=== PATIENT | male | born 1950 | race Caucasian/White ===

== ENCOUNTER → 2017-07-12 09:24 | Outpatient (CLI) | payer MEDICARE, OTHER, SELFPAY ==
--- NOTE | 2017-07-12 09:50 | RAD_ITS ---
STUDY: X-RAY - RIGHT KNEE REASON FOR EXAM: Male, 66 years old. Chronic pain. TECHNIQUE: 4 view(s) of the knee, 2 of which are labeled as weightbearing. COMPARISON: None. FINDINGS: There is early periarticular spurring of the medial femoral condyle. Mild periarticular spurring of the medial tibial plateau as well as spurring of the tibial spines. Normal visualized proximal fibula. There is periarticular spurring at the apex and base of the patella. There is no demonstrated destructive osseous lesion or fracture. Normal medial femorotibial compartment. There is moderate degenerative arthrosis of the lateral femorotibial compartment with moderate joint space narrowing. There is borderline degenerative arthrosis of the patellofemoral articulation. Normal proximal tibiofibular articulation. There is no demonstrated joint effusion. Tibioperoneal calcifications incidentally noted in the calf RAD/Knee 4 or More Views IMPRESSION: Degenerative changes of the knee, as described, is prominent in the medial femorotibial compartment. Electronically Signed: Rei Campos MD at 17:10 EST , Service support ,
== END ==
PROVIDERS: Family Provider Internal Medicine; PCP Internal Medicine; Visit Provider Internal Medicine
DX: M17.11 Unilateral primary osteoarthritis, right knee (principal)
CPT/HCPCS: 73564

== ENCOUNTER → 2018-07-10 15:14 | Outpatient (CLI) | payer MEDICARE, OTHER, SELFPAY ==
--- NOTE | 2018-07-10 15:28 | MRI_ITS ---
STUDY: MRA OF THE HEAD WITHOUT CONTRAST REASON FOR EXAM: Male, 67 years old. Possible stroke TECHNIQUE: 3-D [id number]-[id number] (TOF) imaging was performed with MIPs. The study was performed unenhanced. COMPARISON: None. FINDINGS: Normal bilateral petrous carotid arteries. Normal right cavernous carotid artery with a normal supraclinoid bifurcation. Normal left cavernous carotid artery with a normal supraclinoid bifurcation. Normal right A1 segments of the anterior cerebral artery. Normal left A1 segments of the anterior cerebral artery. Normal intact anterior communicating artery (ACOM). Normal bilateral A2 segments of the anterior cerebral arteries. Normal right M1 and M2 segments of the middle cerebral arteries, with a normal M1 bifurcation. Normal left M1 and M2 segments of the middle cerebral arteries, with a normal M1 bifurcation. Posterior communicating arteries not visualized consistent with normal variant. Right vertebral is dominant and normal caliber. There is hypoplastic left vertebral terminating in PICA which is normal developmental variant... Normal basilar artery with a normal basilar bifurcation. The visualized bilateral superior cerebellar (SCA) arteries are normal. Normal bilateral P1, P2 and visualized P3 segments of the posterior cerebral arteries. There is no demonstrated aneurysm of the [place]. There is no major vessel occlusion or hemodynamically significant stenosis. There is no demonstrated abnormality of the visualized brain. MRI/MRA Head ONLY without Contrast IMPRESSION: Normal MRA of the head Electronically Signed: Jaspal Tidwell MD at 16:39 EST , Service support ,
--- NOTE | 2018-07-10 15:28 | MRI_ITS ---
STUDY: MRI BRAIN WITHOUT CONTRAST REASON FOR EXAM: Male, 67 years old. Diplopia TECHNIQUE: Standardized multiplanar fat and water weighted pulse sequences were obtained. COMPARISON: None. FINDINGS: Mild diffuse cerebral atrophy.. Normal white matter tracts of the supratentorial brain. Normal bilateral basal ganglia. Normal thalami. There is no extra-axial fluid accumulation. Normal flow voids within the major intracranial circulation suggesting patency by spin echo criteria. Gama cisterna magna is noted which is normal developmental variant Normal sella turcica, pituitary gland, infundibular stalk, optic chiasm and hypothalamus. Normal tectal plate and pineal gland. Normal midbrain, geetha and medulla. Normal cerebellum. Normal basal cisterns. Normal bilateral temporal bones. Normal bilateral internal auditory canals. No demonstrated orbital abnormality, within the constraints of a routine brain study. Normal visualized paranasal sinuses. Normal calvarium and skull base. Normal visualized soft tissue structures. Normal visualized upper cervical spine. MRI/Brain without Contrast IMPRESSION: Mild cerebral atrophy. No appreciable white matter disease or evidence for acute infarct. Electronically Signed: Jaspal Tidwell MD at 16:37 EST , Service support ,
== END ==
PROVIDERS: Family Provider Internal Medicine; PCP Internal Medicine; Referring Provider Internal Medicine; Visit Provider Internal Medicine
DX: H53.2 Diplopia (principal)
CPT/HCPCS: 70544; 70551

== ENCOUNTER → 2018-07-11 12:41 | Outpatient (CLI) | payer MEDICARE, OTHER, SELFPAY ==
--- NOTE | 2018-07-11 12:44 | CDU_ITS ---
Reason For Study: Double vision Rt. Velocities/BP Lt. Velocities/BP Prox CCA 105.0/19.9 cm/sec. Prox CCA 118.0/30.5 cm/sec. Mid CCA 90.3/21.1 cm/sec. Mid CCA 104.0/30.5 cm/sec. Dist CCA 72.1/21.7 cm/sec. Dist CCA 93.8/25.8 cm/sec. Prox ICA 75.6/24.0 cm/sec. Prox ICA 68.6/22.9 cm/sec. Mid ICA 87.4/29.9 cm/sec. Mid ICA 85.6/31.1 cm/sec. Dist ICA 89.1/30.5 cm/sec. Dist ICA 87.9/30.5 cm/sec. Rt. ICA/CCA = .99. Lt. ICA/CCA = .85. Prox ECA 108.0/19.3 cm/sec. Prox ECA 82.7/13.5 cm/sec. Rt. Vert. 50.4/15.2 cm/sec. Lt. Vert. 38.9/9.4 cm/sec. Right Extracranial There is intimal thickening but no significant atherosclerotic plaque noted in the right common carotid artery. There is heterogeneous, irregular atherosclerotic plaque noted in the right internal carotid artery. There is intimal thickening but no significant atherosclerotic plaque noted in the right external carotid artery. Antegrade flow is noted in the right vertebral artery. Left Extracranial There is intimal thickening but no significant atherosclerotic plaque noted in the left common carotid artery. There is intimal thickening but no significant atherosclerotic plaque noted in the left internal carotid artery. There is no significant atherosclerotic plaque noted in the left external carotid artery. Antegrade flow is noted in the left vertebral artery. There is heterogeneous, irregular atherosclerotic plaque noted in the left bulb. Procedure Carotid Duplex [id number]. Exam performed in department. Interpretation Summary Mild (<50%) stenosis right extracranial internal carotid. Mild (<50%) stenosis left extracranial internal carotid. Flow within the vertebral arteries is antegrade bilaterally. Ordering Physician: Kristie Grant Referring Physician: Kristie Grant Performed By: Mary Richard RVT
== END ==
PROVIDERS: Family Provider Internal Medicine; PCP Internal Medicine; Referring Provider Internal Medicine; Visit Provider Internal Medicine
DX: H53.2 Diplopia (principal)
CPT/HCPCS: 93880

== ENCOUNTER 2021-08-10 15:33 | Outpatient (CLI) | payer MEDICARE, SELFPAY ==
--- NOTE | 2021-08-10 15:44 | MRI_ITS ---
STUDY: MRI CERVICAL SPINE WITHOUT CONTRAST REASON FOR EXAM: Male, 70 years old. CERVICAL RADICULOPATHY TECHNIQUE: Standardized fat and water weighted pulse sequences were obtained in the sagittal and axial planes. COMPARISON: None FINDINGS: Normal foramen magnum and brainstem-cervical cord junction. Normal craniovertebral junction. Normal anterior atlantoaxial articulation. Normal odontoid process. Nonspecific straightening of the normal cervical lordosis. Normal vertebral bodies and posterior osseous elements. C2-3: Normal endplates. Normal disc height, signal and morphology. Normal central canal and intervertebral neural foramina. C3-4: Normal endplates. Normal disc height, signal and morphology. Normal central canal and intervertebral neural foramina. C4-5: Normal endplates. Normal disc height, signal and morphology. Normal central canal and intervertebral neural foramina. C5-6: Left paracentral disc bulge contributing to mild spinal canal narrowing effacing the ventral cord and mild to moderate left neuroforaminal narrowing. C6-7: Broad-based disc bulge contributing to mild spinal canal narrowing and mild to moderate right neuroforaminal narrowing. . C7-T1: Normal endplates. Normal disc height, signal and morphology. Normal central canal and intervertebral neural foramina. Normal cervical cord. Normal visualized soft tissue structures. MRI/Spine Cervical (Routine) IMPRESSION: No acute fracture. Multilevel degenerative changes as above. Electronically Signed: Javy Chaney MD at 4:59 EDT ,
== END 2021-08-10 23:59 | disposition home or self-care (01) ==
LOC: MRI 15:34
PROVIDERS: PCP Internal Medicine; Referring Provider Nurse Practitioner; Visit Provider Nurse Practitioner
DX: M54.12 Radiculopathy, cervical region (principal)
CPT/HCPCS: 72141

== ENCOUNTER 2021-08-18 10:00 | Outpatient (RCR) | payer MEDICARE, SELFPAY ==
--- NOTE | 2021-08-12 14:21 | HP.PTEVAL_ITS ---
Patient's Visit Information NERY GARDNER Jr. is a 70 year old M referred to Physical Therapy by Dr. Kristie Grant DO with a diagnosis of Neck pain. Date of Evaluation: 08/12/21 Physical Therapist: Nic Chirinos, PT, ATC - Visit Plan Frequency: 2x /Week Duration: 4 Weeks Plan: DTR to c/s, postural edu, scap stab ex's, AROM, and HEP - Subjective Pt reports he is in severe neck pain today. Pt reports he started having pain in his neck and R UE in Jun of this year. Pt notes pain has progressively worsened over this time period. Pt notes he has been performing stretches at home, but they only make his pain worse. Pt reports the pain radiates down his R UE to the hand region. Pt notes he is L hand dominant. Pt reports sig sleep difficulty secondary to pain. Pt reports she has had xrays and a recent MRI which resulted in 2 bulging discs. No PMHx of pain like this before. Pt reports he hopes to be able to travel to [place]. Pt has been retired for 5 years now. Pt currently 4/10 pain at rest, and 9/10 pain at worst. Pt reports he cant even walk when his pain is at its worst. - Pain Neck pain Pain Intensity (Out of 10): 4 Pain Intensity Range: 9 - Objective Neuro: B UE sensation is WNL to light touch. B bicipital reflex= 2/3. Palpation: Significant muscle guarding theoughout cervical spine. MMT: R shoulder flexion and abd= 4/5. All other B UE MMT 5/5 throughout. ROM: Pt is severely limited with retraction and ext, moderately limited with R SB and rot. All other movements are WFL. Repeated movements: RPIS had NE. RRIS peripheralised sx's into R UE. Special test: Positive apley compression and distraction tests - Balance/Special Test Scores Oswestry Neck Score: 33 - Goals Goal 1:: Decrease neck pain x 50% to aid with sleep Goal Time Frame: 2-4 Weeks Goal 2:: Increase c/s ROM to WNL to aid with restoring proper posture Goal Time Frame: 2-4 Weeks Goal 3:: Decrease the frequency and intensity of R UE radiculopathy x 50% to aid with IADL's Goal Time Frame: 2-4 Weeks Goal 4:: I with HEP Goal Time Frame: 2-4 Weeks - Rehabilitation Potential Physical Therapy Diagnosis: Pt has neck pain, R UE radiculopathy, and limited c/s ROM secondary to disc herniations c5-7 Rehabilitation Potential: Good - Anticipated Interventions Patient/Client Instruction: Educate patient on: Condition, Plan of Care For the Purpose of:: To improve self management Therapeutic Exercise to Include: Body mechanics, Postural training, Flexibilty training, Active ROM, Corey Exercises, Scapular Strength/Stabilization For the Purpose of:: To decrease pain, To increase ROM, To improve muscle performance and motor function Cryotherapy (ice pack, ice massage): Yes Thermo therapy (hot pack): Yes Ultrasound (thermal/non thermal): Yes For the Purpose of:: To decrease pain Thank you for the opportunity to evaluate your patient. For Medicare and Medicare HMO plans, please review the plan of care and approve it. It will need to be FAXED BACK to us at [phone] for Medicare purposes. For Medicare only, by signing this I certify the plan of care. Please let me know if there are questions or concerns regarding this plan of care. Physician Signature: Date:
--- NOTE | 2021-08-26 15:45 | HP.PT.NRP ---
NERY NUNNSHANON Thayer was seen in my office for initial evaluation on 08/12/21. The following Plan of Care was established for this patient: Initial Frequency: 2x /Week Initial Duration: 4 Weeks Patient/Client Instruction: Educate patient on: Condition, Plan of Care For the Purpose of:: To improve self management Therapeutic Exercise to Include: Body mechanics, Postural training, Flexibilty training, Active ROM, Corey Exercises, Scapular Strength/Stabilization For the Purpose of:: To decrease pain, To increase ROM, To improve muscle performance and motor function Cryotherapy (ice pack, ice massage): Yes Thermo therapy (hot pack): Yes Ultrasound (thermal/non thermal): Yes For the Purpose of:: To decrease pain This patient was last seen in our office . Pertinent comments regarding their Physical therapy will appear below: PATIENT CALLED AND CANCELLED ALL REMAINING KERLINE'TS. PATIENT REPORTS HE IS GOING TO HAVE SURGERY. At this point I will be discontinuing this patient from physical therapy. I would be happy to see this patient again in the future if found appropriate by the physician. Thank you! Nataly Humphries, PT, Cert MDT Balance/Gait/Functional tests - Balance/Special Test Scores Oswestry Neck Score: 33
== END 2021-08-18 19:00 | disposition home or self-care (01) ==
LOC: PT 10:00
PROVIDERS: PCP Internal Medicine; Referring Provider Internal Medicine; Visit Provider Internal Medicine
DX: M54.2 Cervicalgia (principal)
CPT/HCPCS: 97035; 97140; 97161; 97530

== ENCOUNTER → 2021-09-14 | Outpatient (CLI) | payer MEDICARE, SELFPAY ==
--- NOTE | 2021-09-14 10:47 | ECHOD_ITS ---
Reason For Study: Heart Murmur Procedure This was a 2D Doppler, Color Flow transthoracic echocardiogram. Exam performed in department. Left Ventricle Normal LV size. Left ventricular systolic function is normal. The estimated ejection fraction is 60 %. Normal diastology for age. No regional wall motion abnormalities noted. Right Ventricle Normal RV size. Normal systolic function. Atria Normal left atrium. Normal right atrium. Mitral Valve Posterior leaflet mitral valve prolapse. Moderate (2+) anteriorly directed mitral valve insufficiency. Tricuspid Valve Normal tricuspid valve. Mild (1+) tricuspid valve insufficiency. Pulmonary artery systolic pressure is 32 mmHg. Aortic Valve Trisinus/trileaflet aortic valve. Pulmonic Valve Normal pulmonic valve. Great Vessels Normal aortic root. The pulmonary artery is normal size. Normal inferior vena cava. Pericardium/Pleural No pericardial effusion. MMode/2D Measurements & Calculations LVIDd: 4.7 cm IVSd: 1.2 cm Ao root diam: 3.5 cm LVIDs: 3.5 cm LVPWd: 0.91 cm RVDd: 3.7 cm FS: 27.1 % LAV(MOD-bp): 69.8 ml LVAd ap4: 34.8 cm2 SV(MOD-sp4): 60.4 ml LAV(MOD-bp) Indexed: 34.5 ml/m2 LVLd ap4: 9.2 cm LAV(MOD-sp2): 75.0 ml EDV(MOD-sp4): 108.9 ml LAV(MOD-sp4): 59.9 ml EDV(sp4-el): 112.2 ml LVAs ap4: 21.0 cm2 LVLs ap4: 7.6 cm ESV(MOD-sp4): 48.5 ml ESV(sp4-el): 49.7 ml EF(MOD-sp4): 55.5 % EF(sp4-el): 55.7 % SV(sp4-el): 62.5 ml LA A4 area: 20.3 cm2 LA dimension(2D): 4.6 cm RA A4 area: 14.7 cm2 Doppler Measurements & Calculations MV E max abrahan: 84.2 cm/sec Lat Peak E' Abrahan: 7.7 cm/sec Med Peak E' Abrahan: 7.2 cm/sec MV A max abrahan: 70.2 cm/sec E/E' lat: 11.0 E/E' med: 11.6 MV E/A: 1.2 Ao V2 max: 125.3 cm/sec LV V1 max: 95.5 cm/sec PA V2 max: 117.3 cm/sec Ao max P.3 mmHg LV V1 max P.6 mmHg Ao V2 mean: 82.7 cm/sec Ao mean P.1 mmHg Ao V2 VTI: 24.4 cm TR max abrahan: 270.1 cm/sec TR max P.2 mmHg ECHO/Echo Complete Interpretation Summary Normal LV size. Left ventricular systolic function is normal. The estimated ejection fraction is 60 %. No regional wall motion abnormalities noted. Posterior leaflet mitral valve prolapse. Moderate (2+) anteriorly directed mitral valve insufficiency. Pulmonary artery systolic pressure is 32 mmHg. Ordering Physician: Kristie Grant Referring Physician: Kristie Grant Performed By: Breann Meléndez, ASAD, RVT
== END | disposition home or self-care (01) ==
LOC: CVS 10:43
PROVIDERS: PCP Internal Medicine; Visit Provider Internal Medicine
DX: R01.1 Cardiac murmur, unspecified (principal)
CPT/HCPCS: 93306

== ENCOUNTER → 2022-03-17 | Outpatient (CLI) | payer MEDICARE, SELFPAY ==
--- NOTE | 2022-03-17 07:53 | ECHOD_ITS ---
Reason For Study: MVP Procedure This was a 2D Doppler, Color Flow transthoracic echocardiogram. Exam performed in department. Left Ventricle Normal LV size. Left ventricular systolic function is normal. The estimated ejection fraction is 60 %. No regional wall motion abnormalities noted. Right Ventricle Normal RV size. Normal systolic function. Atria The left atrium is mildly enlarged. Normal right atrium. Mitral Valve Posterior leaflet mitral valve prolapse. Mild-Moderate (1-2+) anteriorly directed mitral valve insufficiency. Tricuspid Valve Normal tricuspid valve. Mild tricuspid valve insufficiency. Pulmonary artery systolic pressure is 28 mmHg. Aortic Valve Trisinus/trileaflet aortic valve. Pulmonic Valve Normal pulmonic valve. Great Vessels Normal aortic root. The pulmonary artery is normal size. Normal inferior vena cava. Pericardium/Pleural No pericardial effusion. MMode/2D Measurements & Calculations LVIDd: 5.1 cm IVSd: 1.2 cm Ao root diam: 3.5 cm LVIDs: 3.6 cm LVPWd: 1.1 cm RVDd: 4.1 cm FS: 28.1 % LAV(MOD-bp): 86.6 ml LVAd ap4: 41.5 cm2 SV(MOD-sp4): 81.4 ml LAV(MOD-bp) Indexed: 42.8 ml/m2 LVLd ap4: 9.4 cm LAV(MOD-sp2): 94.1 ml EDV(MOD-sp4): 147.0 ml LAV(MOD-sp4): 75.0 ml EDV(sp4-el): 156.1 ml LVAs ap4: 24.5 cm2 LVLs ap4: 7.9 cm ESV(MOD-sp4): 65.7 ml ESV(sp4-el): 64.7 ml EF(MOD-sp4): 55.3 % EF(sp4-el): 58.6 % SV(sp4-el): 91.4 ml LA A4 area: 24.7 cm2 LA dimension(2D): 4.7 cm RA A4 area: 18.8 cm2 Time Measurements MV dec time: 0.19 sec Doppler Measurements & Calculations MV E max abrahan: 73.7 cm/sec Lat Peak E' Abrahan: 8.5 cm/sec Med Peak E' Abrahan: 7.0 cm/sec MV A max abrahan: 59.9 cm/sec E/E' lat: 8.6 E/E' med: 10.5 MV E/A: 1.2 MV V2 max: 80.1 cm/sec Ao V2 max: 116.9 cm/sec MV max P.6 mmHg MV dec slope: 393.3 cm/sec2 Ao max P.5 mmHg MV V2 mean: 47.8 cm/sec Ao V2 mean: 84.8 cm/sec MV mean P.0 mmHg Ao mean P.2 mmHg MV V2 VTI: 28.7 cm Ao V2 VTI: 26.8 cm LV V1 max: 93.9 cm/sec PA V2 max: 79.0 cm/sec TR max abrahan: 249.6 cm/sec LV V1 max P.5 mmHg PA V2 mean: 51.8 cm/sec TR max P.9 mmHg LV V1 mean P.7 mmHg LV V1 mean: 59.9 cm/sec LV V1 VTI: 20.1 cm ECHO/Echo Complete Interpretation Summary Left ventricular systolic function is normal. The estimated ejection fraction is 60 %. The left atrium is mildly enlarged. Posterior leaflet mitral valve prolapse. Mild-Moderate (1-2+) anteriorly directed mitral valve insufficiency. Pulmonary artery systolic pressure is 28 mmHg. Prior to the previous echo the above findings are essentially unchanged. Ordering Physician: Madison Butler Referring Physician: Kristie Grant M.D. Performed By: Wendy Harrison RCS
== END | disposition home or self-care (01) ==
PROVIDERS: PCP Internal Medicine; Visit Provider Physician Assistant Medical
DX: I34.1 Nonrheumatic mitral (valve) prolapse (principal)
CPT/HCPCS: 93306

== ENCOUNTER → 2022-10-23 | Outpatient (CLI) | payer MEDICARE, SELFPAY ==
--- NOTE | 2022-10-23 14:59 | ECHOD_ITS ---
Reason For Study: MURMUR Procedure This was a 2D Doppler, Color Flow transthoracic echocardiogram. Exam performed in department. Left Ventricle Normal LV size. Left ventricular systolic function is normal. The estimated ejection fraction is 60 %. Normal diastology for age. No regional wall motion abnormalities noted. Right Ventricle Normal RV size. Normal systolic function. Atria Normal left atrium. Normal right atrium. Mitral Valve Posterior leaflet mitral valve prolapse. Mild (1+) anteriorly directed mitral valve insufficiency. Tricuspid Valve Normal tricuspid valve. Aortic Valve Trisinus/trileaflet aortic valve. Mild focal aortic valve thickening. Pulmonic Valve Normal pulmonic valve. Great Vessels Normal aortic root. Pericardium/Pleural No pericardial effusion. MMode/2D Measurements & Calculations LVIDd: 5.0 cm IVSd: 1.1 cm Ao root diam: 3.7 cm LVIDs: 3.4 cm LVPWd: 1.1 cm RVDd: 3.2 cm FS: 32.1 % LAV(MOD-bp): 79.5 ml LVAd ap4: 36.1 cm2 SV(MOD-sp4): 70.0 ml LAV(MOD-bp) Indexed: 39.3 ml/m2 LVLd ap4: 9.0 cm LAV(MOD-sp2): 84.6 ml EDV(MOD-sp4): 118.0 ml LAV(MOD-sp4): 70.9 ml EDV(sp4-el): 122.6 ml LVAs ap4: 20.2 cm2 LVLs ap4: 7.3 cm ESV(MOD-sp4): 48.0 ml ESV(sp4-el): 47.4 ml EF(MOD-sp4): 59.3 % EF(sp4-el): 61.4 % SV(sp4-el): 75.2 ml LA A4 area: 23.3 cm2 RA A4 area: 14.3 cm2 Time Measurements MV dec time: 0.21 sec Doppler Measurements & Calculations MV E max abrahan: 68.9 cm/sec Lat Peak E' Abrahan: 11.6 cm/sec Med Peak E' Abrahan: 7.1 cm/sec MV A max abrahan: 51.0 cm/sec E/E' lat: 5.9 E/E' med: 9.7 MV E/A: 1.4 MV V2 max: 80.3 cm/sec Ao V2 max: 149.5 cm/sec MV max P.6 mmHg MV dec slope: 345.5 cm/sec2 Ao max P.9 mmHg MV V2 mean: 54.7 cm/sec Ao V2 mean: 91.1 cm/sec MV mean P.3 mmHg Ao mean P.1 mmHg MV V2 VTI: 25.2 cm Ao V2 VTI: 22.9 cm AV (velocity ratio): 0.92 LV V1 max: 109.5 cm/sec MR max abrahan: 407.1 cm/sec PA V2 max: 115.2 cm/sec LV V1 max P.8 mmHg MR max P.3 mmHg LV V1 mean P.3 mmHg LV V1 mean: 71.3 cm/sec LV V1 VTI: 21.0 cm ECHO/Echo Complete Interpretation Summary Normal LV size. Left ventricular systolic function is normal. The estimated ejection fraction is 60 %. Normal diastology for age. Posterior leaflet mitral valve prolapse. Mild (1+) anteriorly directed mitral valve insufficiency. Ordering Physician: Madison Butler Referring Physician: Madison Butler Performed By: Wendy Harrison RCS
== END | disposition home or self-care (01) ==
LOC: CVS 14:59
PROVIDERS: PCP Internal Medicine; Referring Provider Physician Assistant Medical; Visit Provider Physician Assistant Medical
DX: I34.1 Nonrheumatic mitral (valve) prolapse (principal)
CPT/HCPCS: 93306

== ENCOUNTER → 2023-12-05 | Outpatient (CLI) | payer MEDICARE, SELFPAY ==
--- NOTE | 2023-12-05 13:00 | ECHOD_ITS ---
Reason For Study: MITRAL VALVE INSUFFICIENCY Procedure This was a 2D Doppler, Color Flow transthoracic echocardiogram. Exam performed in department. Left Ventricle Normal LV size. The left ventricular ejection fraction is 65 %. Left ventricular systolic function is normal. No regional wall motion abnormalities noted. Right Ventricle Normal RV size. Normal systolic function. Atria Normal left atrium. Normal right atrium. Mitral Valve Bileaflet diffuse mitral valve thickening. Tricuspid Valve Normal tricuspid valve. Mild (1+) tricuspid valve insufficiency. Pulmonary artery systolic pressure is 25 mmHg. Aortic Valve Trisinus/trileaflet aortic valve. Pulmonic Valve Normal pulmonic valve. Great Vessels Normal aortic root. The pulmonary artery is normal size. Inferior vena cava collapse with respiration. Pericardium/Pleural No pericardial effusion. MMode/2D Measurements & Calculations LVIDd: 4.7 cm IVSd: 0.92 cm Ao root diam: 3.3 cm LVIDs: 3.3 cm LVPWd: 1.1 cm RVDd: 3.9 cm FS: 30.4 % LAV(MOD-bp): 53.5 ml LVAd ap4: 37.0 cm2 SV(MOD-sp4): 79.0 ml LAV(MOD-bp) Indexed: 25.7 ml/m2 LVLd ap4: 9.2 cm LAV(MOD-sp2): 55.1 ml EDV(MOD-sp4): 122.0 ml LAV(MOD-sp4): 50.4 ml EDV(sp4-el): 126.1 ml LVAs ap4: 19.9 cm2 LVLs ap4: 7.6 cm ESV(MOD-sp4): 42.9 ml ESV(sp4-el): 44.7 ml EF(MOD-sp4): 64.8 % EF(sp4-el): 64.6 % SV(sp4-el): 81.4 ml LA A4 area: 19.1 cm2 LA dimension(2D): 4.1 cm RA A4 area: 17.6 cm2 TAPSE: 2.6 cm Time Measurements MV dec time: 0.20 sec Doppler Measurements & Calculations MV E max abrahan: 74.5 cm/sec Lat Peak E' Abrahan: 10.7 cm/sec Med Peak E' Abrahan: 8.3 cm/sec MV A max abrahan: 71.5 cm/sec E/E' lat: 7.0 E/E' med: 8.9 MV E/A: 1.0 Ao V2 max: 119.3 cm/sec LV V1 max: 104.4 cm/sec PA V2 max: 123.5 cm/sec Ao max P.7 mmHg LV V1 max P.4 mmHg TR max abrahan: 234.8 cm/sec TR max P.0 mmHg ECHO/Echo Complete Interpretation Summary Normal LV size. The left ventricular ejection fraction is 65 %. Left ventricular systolic function is normal. Mild (1+) tricuspid valve insufficiency. Pulmonary artery systolic pressure is 25 mmHg. Ordering Physician: Madison Butler Referring Physician: Madison Butler Performed By: Lilibeth Oconnor RDCS
== END | disposition home or self-care (01) ==
PROVIDERS: PCP Internal Medicine; Referring Provider Physician Assistant Medical; Visit Provider Physician Assistant Medical
DX: I34.0 Nonrheumatic mitral (valve) insufficiency (principal)
CPT/HCPCS: 93306

== ENCOUNTER → 2024-05-15 | Outpatient (CLI) | payer MEDICARE, SELFPAY ==
--- NOTE | 2024-05-15 08:14 | EKG12_ITS ---
Test Reason : PRE OP Blood Pressure : */* mmHG Vent. Rate : 73 BPM Atrial Rate : 73 BPM P-R Int : 124 ms QRS Dur : 70 ms QT Int : 366 ms P-R-T Axes : 6 2 7 degrees QTcB Int : 403 ms Sinus rhythm with occasional Premature ventricular complexes Minimal voltage criteria for LVH, may be normal variant Borderline ECG Confirmed by Gavin Mccormick ([id number]), senior technical editor [employer] [facility] ([id number]) on 05/16/2024 5:56:16 AM Referred By: Saad Chen Confirmed By: Gavin Mccormick
--- NOTE | 2024-05-15 08:14 | CT_ITS ---
CT RIGHT LOWER EXTREMITY WITH 3-D IMAGING CLINICAL INDICATION: PAIN IN R KNEE TECHNIQUE: Axial CT images of the right lower extremity (including right hip, right knee, and right ankle) was performed without IV contrast material. Coronal and sagittal reformats were provided. The protocol utilizes one or more of the following dose reduction techniques: automated exposure control, adjustment of mA and/or kV according to patient size, and/or use of iterative reconstruction technique. RADIATION DOSAGE (If Supplied By Facility): CTDIvol = ( 19.07 ) mGy, DLP = ( 1244.85 ) mGycm COMPARISON: Right knee radiographs dated 03/17/2024. FINDINGS: Bones: There is mild degenerative arthrosis of the right hip joint, with no acute fracture. There is tricompartment degenerative arthrosis of the right knee, most pronounced in the medial femorotibial compartment, where there is severe joint space narrowing, marginal osteophyte formation, subchondral sclerosis, and subchondral cyst formation. Unremarkable right ankle. Osseous structures are intact without evidence of fracture or dislocation. No lytic or blastic osseous masses. Soft Tissues: There is a small right knee joint effusion. The deep soft tissue structures are unremarkable. The superficial soft tissues are unremarkable without evidence of edema, hematoma, or foreign body. 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 Small right knee joint effusion. Electronically Signed: Jakob Urban MD at 9:23 EST ,
== END | disposition home or self-care (01) ==
LOC: CT 08:13
PROVIDERS: PCP Internal Medicine; Referring Provider Specialist; Visit Provider Specialist
DX: Z01.818 Encounter for other preprocedural examination (principal); M17.11 Unilateral primary osteoarthritis, right knee; M21.161 Varus deformity, not elsewhere classified, right knee
CPT/HCPCS: 73700; 93005